=== PATIENT | male | born 1955 | race Caucasian/White ===

== ENCOUNTER 2021-10-15 14:44 | Observation (INO) | payer OTHER, MEDICAID, SELFPAY ==
[2021-10-15] VITALS (15 sets, daily range): BP systolic 162–191; BP diastolic 87–101; PULSE 53–80; RESP 12–20; TEMP 36.8–36.9; O2SAT 97–100; BMI 26.5
--- NOTE | 2021-10-15 14:54 | DI.US.S_ITS ---
PROCEDURE: US PERIPH VENOUS LOW EXTREM RT INDICATIONS: swollen right lower leg TECHNIQUE: Real-time imaging, as well as color and pulse Doppler interrogation, were performed of the lower extremity deep veins from the inguinal ligament to the popliteal fossa. COMPARISON: None. FINDINGS: There is acute fully occlusive thrombus within the right lower extremity involving the proximal , middle, and distal segments of the superficial femoral vein as well as the deep femoral vein and popliteal vein. Infrapopliteal vessels are involved to varying degrees. IMPRESSION: Extensive fully occlusive right lower extremity deep venous thrombosis. Dictated by: Rakesh Marx M.D. on 10/15/2021 at 16:10 Approved by: Rakesh Marx M.D. on 10/15/2021 at 16:11
--- NOTE | 2021-10-15 15:23 | ED_ITS ---
HPI - Extremity Problem General Chief complaint: Extremity Problem,Nontraumatic Stated complaint: R/O blood clot in rt leg, high bp- sent by [facility] Time Seen by Provider: 10/15/21 15:09 Source: patient Mode of arrival: Ambulatory History of Present Illness HPI Narrative: Patient here with family. Sent here from the [facility]. Patient found to have high blood pressure which is unusual for him. Patient also has right calf pain and swelling. No prior history of blood clots in legs or lungs. Patient denies any chest pain but complains of a lot of fatigue and dyspnea in the past couple of weeks. No known injury to the right leg. Blood pressure noted on arrival. Related Data Previous Rx's Medication Instructions Recorded apixaban 5 mg (74 tabs) tablets in See Rx Instructions .ROUTE 10/16/21 a dose pack .COMPLEX #74 ea lisinopril 20 mg tablet 40 mg PO DAILY #60 tab 10/19/21 Allergies Allergy/AdvReac Type Severity Reaction Status Date / Time No Known Drug Allergies Allergy Verified 10/15/21 14:54 Review of Systems Review of Systems Narrative: GENERAL: Denies chills, fatigue, malaise, fever, sweats. HEENT: Denies sinus pain, ear pain, sore throat RESPIRATORY: Positive for dyspnea, negative for cough CARDIOVASCULAR: Denies chest pain, palpitations GASTROINTESTINAL: Denies nausea, vomiting, abdominal pain : Denies dysuria, frequency, hematuria MUSCULOSKELETAL: Positive for muscle or bony pain SKIN: Denies rash, skin lesions NEUROLOGIC: Denies weakness, numbness ROS Unobtainable: All systems reviewed & are unremarkable except as noted in HPI and below Patient History Medical History Chicken pox Genital warts Wears glasses Surgical History Anesthesia History of ankle surgery (~1973) History of ankle surgery (~1972) History of surgery on arm (~1966) Social History household members: spouse Smoking Status: Never smoker Smoking Status: Never smoker alcohol intake frequency: holidays/special occasions only Substance Use Type: marijuana Exam Narrative Exam Narrative: GENERAL: in no distress, not toxic not dyspneic HEAD: Normocephalic. EYES: Pupils equal round No scleral icterus. ENT: Mucous membranes moist. NECK: Trachea midline. CARDIOVASCULAR: Regular rate and rhythm without murmurs RESPIRATORY: Clear to auscultation. Breath sounds equal bilaterally. No wheezes, rales, or rhonchi. GASTROINTESTINAL: Abdomen soft, non-tender EXTREMITIES: No gross deformities. Thighs to feet exposed bilaterally. Feet are warm soft and pink with strong pedal pulse with light touch intact to feet and toes. Right calf is slightly larger than the left. On examination right lower extremity nontender hip knee and ankle. There is tightness to the right calf. Mild tenderness. No palpable cords. No pain out of proportion to exam. Calf is warm soft and pink and dry. BACK: No flank tenderness. NEURO: AOx4. SKIN: Warm and dry PSYCH: Not anxious, is cooperative Initial Vital Signs Initial Vital Signs: Vital Signs Temperature 98.4 F 10/15/21 14:50 Pulse Rate 78 10/15/21 14:50 Respiratory Rate 16 10/15/21 14:50 Blood Pressure 191/101 H 10/15/21 14:50 Pulse Oximetry 100 10/15/21 14:50 Course Course Course Narrative: No new issues during course of stay Decision to Admit Date: 10/15/21 Decision to Admit time: 17:13 Orders Ordered: Discontinued Medications Apixaban (Apixaban 5 Mg Tablet) 10 mg PO NOW ONE Stop: 10/16/21 09:36 Last Admin: 10/16/21 10:34 Dose: 10 mg Documented by: ANGELO Heparin Sodium (Porcine) (Heparin 5,000 Unit/Ml Vial) 6,700 unit 80 unit/kg (6700 unit) IV NOW ONE Stop: 10/15/21 17:08 Last Admin: 10/15/21 17:24 Dose: 6,700 unit Documented by: STACIE Heparin Sodium (Porcine) (Heparin 5,000 Unit/Ml Vial) 5,000 unit IV NOW ONE Stop: 10/16/21 08:01 Last Admin: 10/16/21 08:00 Dose: 5,000 unit Documented by: ANGELO Hydralazine HCl (Hydralazine 20 Mg/Ml Vial) 5 mg IV NOW ONE Stop: 10/15/21 16:11 Last Admin: 10/15/21 16:27 Dose: 5 mg Documented by: STACIE Heparin Sodium/Dextrose (Heparin Drip) 25,000 unit in 500 mls @ 30.209 mls/hr IV CONT SYDNI; Protocol Last Titration: 10/16/21 10:58 Dose: 0 units/kg/hr, 0 mls/hr Documented by: Titration: 10/16/21 08:03 Dose: 24 units/kg/hr, 40.279 mls/hr Documented by: Titration: 10/15/21 17:33 Dose: 18 units/kg/hr, 30.209 mls/hr Documented by: Admin: 10/15/21 17:26 Dose: 18 units/kg/hr, 30.209 mls/hr Documented by: STACIE Lisinopril (Lisinopril 20 Mg Tablet) 20 mg PO DAILY [facility] Last Admin: 10/16/21 08:16 Dose: 20 mg Documented by: Admin: 10/15/21 18:21 Dose: 20 mg Documented by: DAKOTAH Reevaluation(s) Reevaluation #1: No new issues. Reviewed results with patient and family. They understand and agree for admit. Time: 17:13 Consultations Consultation #1: Spoke with hospitalist, dr shah, agrees for admit. Start heparin. Add BNP Time: 17:14 Vital Signs Vital signs: Vital Signs - 8 hr 10/15/21 14:50 10/15/21 14:52 10/15/21 14:53 Temperature 98.4 F Pulse Rate 78 80 64 Respiratory Rate 16 Blood Pressure 191/101 H 165/100 H Pulse Oximetry 100 99 99 10/15/21 15:00 10/15/21 15:30 10/15/21 16:00 Temperature Pulse Rate 57 L 61 53 L Respiratory Rate 12 Blood Pressure 170/98 H Pulse Oximetry 98 98 97 10/15/21 16:01 10/15/21 16:28 10/15/21 16:30 Temperature Pulse Rate 61 57 L 60 Respiratory Rate 12 Blood Pressure 165/91 H 174/89 H 162/89 H Pulse Oximetry 97 100 99 MDM - Extremity (Nontraumatic) Differential Diagnosis Differential diagnosis: Likely deep vein thrombosis of lower extremity and other (Pulmonary embolism/hypertensive urgency) Lab Data Result diagrams: 10/15/21 23:24 10/16/21 05:03 Labs: Lab Results 10/15/21 10/15/21 10/15/21 Range/Units 15:30 15:30 16:30 WBC 8.5 (4.5-11.0) X10^3/uL RBC 4.36 L (4.5-5.9) X10^6/uL Hgb 14.8 (13.5-17.5) g/dL Hct 41.6 (41-53) % MCV 95.5 (80-100) fL MCH 34.1 H (26-34) PG MCHC 35.7 (30-36) % RDW 12.9 (11.6-14.8) % Plt Count 247 (150-400) X10^3/uL Neut % (Auto) 57.4 (50-75) % Lymph % (Auto) 33.0 (25-40) % [place] % (Auto) 7.0 (3-14) % Eos % (Auto) 2.0 (2-4) % Baso % (Auto) 0.6 (0-2) % Neut # (Auto) 4900 (6496-9903) /uL Lymph # (Auto) 2800 (7110-1725) /uL [place] # (Auto) 600 (0-900) /uL Eos # (Auto) 200 (0-450) /uL Baso # (Auto) 100 (0-100) /uL PT (10.1-12.7) SECONDS INR (0.9-1.3) APTT (26.4-36.2) SECONDS D-Dimer (<230) ng/mL Sodium (137-145) mmol/L Potassium (3.4-5.1) mmol/L Chloride (98-107) mmol/L Carbon Dioxide (22-32) mmol/L BUN (9-20) mg/dL Creatinine (0.66-1.25) mg/dL Estimated GFR (>60) mL/min BUN/Creatinine Ratio (6-22) Glucose (80-110) mg/dL Calcium (8.4-10.2) mg/dL Magnesium 2.4 H (1.6-2.3) mg/dL Total Bilirubin (0.2-1.3) mg/dL AST (17-59) IU/L ALT (<50) IU/L Alkaline Phosphatase (38-126) U/L Total Creatine Kinase 133 (55-170) U/L CK-MB (CK-2) 0.58 (<2.37) ng/mL CK-MB (CK-2) Rel Index 0.4 L (1.5-5.0) % Troponin I < 0.012 (0.01-0.034) ng/mL NT-Pro-B Natriuret Pep (<125) pg/mL Total Protein (6.3-8.2) g/dL Albumin (3.5-5.0) g/dL Globulin (1.7-4.1) g/dL Albumin/Globulin Ratio (1.0-2.8) SARS-CoV-2 (PCR) Negative (Negative) 10/15/21 10/15/21 10/15/21 Range/Units 16:36 16:36 16:36 WBC (4.5-11.0) X10^3/uL RBC (4.5-5.9) X10^6/uL Hgb (13.5-17.5) g/dL Hct (41-53) % MCV (80-100) fL MCH (26-34) PG MCHC (30-36) % RDW (11.6-14.8) % Plt Count (150-400) X10^3/uL Neut % (Auto) (50-75) % Lymph % (Auto) (25-40) % [place] % (Auto) (3-14) % Eos % (Auto) (2-4) % Baso % (Auto) (0-2) % Neut # (Auto) (0116-2521) /uL Lymph # (Auto) (8612-3687) /uL [place] # (Auto) (0-900) /uL Eos # (Auto) (0-450) /uL Baso # (Auto) (0-100) /uL PT 13.9 H (10.1-12.7) SECONDS INR 1.2 (0.9-1.3) APTT 30 (26.4-36.2) SECONDS D-Dimer 2041 H (<230) ng/mL Sodium 139 (137-145) mmol/L Potassium 4.1 (3.4-5.1) mmol/L Chloride 104 (98-107) mmol/L Carbon Dioxide 27 (22-32) mmol/L BUN 21 H (9-20) mg/dL Creatinine 0.79 (0.66-1.25) mg/dL Estimated GFR > 60.0 (>60) mL/min BUN/Creatinine Ratio 26.6 H (6-22) Glucose 102 (80-110) mg/dL Calcium 8.9 (8.4-10.2) mg/dL Magnesium (1.6-2.3) mg/dL Total Bilirubin 0.9 (0.2-1.3) mg/dL AST 23 (17-59) IU/L ALT 17 (<50) IU/L Alkaline Phosphatase 102 (38-126) U/L Total Creatine Kinase (55-170) U/L CK-MB (CK-2) (<2.37) ng/mL CK-MB (CK-2) Rel Index (1.5-5.0) % Troponin I (0.01-0.034) ng/mL NT-Pro-B Natriuret Pep 25 (<125) pg/mL Total Protein 6.9 (6.3-8.2) g/dL Albumin 4.1 (3.5-5.0) g/dL Globulin 2.8 (1.7-4.1) g/dL Albumin/Globulin Ratio 1.5 (1.0-2.8) SARS-CoV-2 (PCR) (Negative) ECG Data Interpretation: Sinus bradycardia at rate [address] elevation MDM Narrative Medical decision making narrative: Appropriate for admission. Will need anticoagulation with history DVT and pulmonary embolism findings today. Patient understands. Heparin started in the department. Patient otherwise hemodynamically stable. Blood pressure did improve from arrival time. Discharge Plan Departure Patient Disposition: Admitted As Inpatient Clinical Impression: Deep vein thrombosis of lower extremity Qualifiers: Affected thrombotic vein of extremity: unspecified vein of extremity Chronicity: acute Laterality: right Qualified Code(s): I82.401 - Acute embolism and thrombosis of unspecified deep veins of right lower extremity Pulmonary embolism Qualifiers: Pulmonary embolism type: single subsegmental (without acute cor pulmonale) Qualified Code(s): I26.93 - Single subsegmental pulmonary embolism without acute cor pulmonale Admit Date/Time: 10/15/21 17:20 Admit Provider: Aline Shah
[2021-10-15 15:42] LABS: Add Manual Diff / Slide Review NO; Basophils Absolute Auto 100 /uL (0-100); Basophils Percent Auto 0.6 % (0-2); Eosinophils Absolute Auto 200 /uL (0-450); Hematocrit 41.6 % (41-53); Hemoglobin 14.8 g/dL (13.5-17.5); Lymphocytes Absolute Auto 2800 /uL (1100-4500); Mean Corpuscular HGB Conc 35.7 % (30-36); Mean Corpuscular Hemoglobin 34.1 PG (26-34); Mean Corpuscular Volume 95.5 fL (80-100); Monocytes Absolute Auto 600 /uL (0-900); Neutrophils Absolute Auto 4900 /uL (1500-7000); Neutrophils Percent Auto 57.4 % (50-75); Platelet Count 247 X10^3/uL (150-400); Red Blood Cell Count 4.36 X10^6/uL (4.5-5.9); Red Cell Distribution Width 12.9 % (11.6-14.8); White Blood Cell Count 8.5 X10^3/uL (4.5-11.0)
--- NOTE | 2021-10-15 16:08 | DI.CT.S_ITS ---
PROCEDURE: CT ANGIO CHEST PE PROTOCOL INDICATIONS: Dyspnea TECHNIQUE: Helical axial CT of the chest was obtained after intravenous contrast injection utilizing an angiographic technique and reformatted in multiple planes. Radiation dose reduction was achieved utilizing automated exposure control and/or adjustment of the dose parameters according to patient's size. COMPARISON: None. FINDINGS: Image quality: Excellent. Pulmonary arteries: Filling defects noted in the right lower lobe, middle lobe and upper lobe segmental pulmonary arteries. No filling defect in the right main or left-sided pulmonary arteries. No evidence of right heart strain. Lungs and pleura: Wedge-shaped pleural-based consolidation noted in the right middle lobe peripherally measuring less than 2 cm. Remainder the lungs and both pleural spaces are clear. Mediastinum: Heart size is normal, without pericardial effusion. No mediastinal or hilar adenopathy. Thoracic aorta is normal in caliber and enhancement. Esophagus is normal in caliber, without hiatal hernia. Bones and chest wall: No suspicious bony lesions. Ribs and thoracic spine appear intact throughout. Thyroid gland unremarkable. No axillary or supraclavicular adenopathy. Abdomen: Hepatic cysts are partially imaged measuring up to 3.6 cm IMPRESSION: 1. Right-sided segmental pulmonary emboli without evidence of right heart strain. 2. Small pleural based right middle lobe consolidation could reflect small pulmonary infarct Note: Critical results were discussed with Dr. Rivero at 03:51 PM [place] time on 10/15/21 Approved by: Shun Ghosh M.D. on 10/15/2021 at 15:52
[2021-10-15 16:13] LABS: Creatine Kinase 133 U/L (55-170); Magnesium 2.4 mg/dL (1.6-2.3)
[2021-10-15 16:25] LABS: Troponin I < 0.012 ng/mL (0.01-0.034)
[2021-10-15] MEDS: HYDRALAZINE 20 MG/ML VIAL 5 MG IV (16:27)
[2021-10-15 16:28] LABS: CKMB % Relative Index 0.4 % (1.5-5.0); Creatine Kinase MB 0.58 ng/mL (<2.37)
[2021-10-15 16:52] LABS: INR 1.2 (0.9-1.3); Prothrombin Time 13.9 SECONDS (10.1-12.7)
[2021-10-15 16:55] LABS: Alanine Aminotransferase 17 IU/L (<50); Albumin 4.1 g/dL (3.5-5.0); Albumin Globulin Ratio 1.5 (1.0-2.8); Alkaline Phosphatase 102 U/L (38-126); Aspartate Aminotransferase 23 IU/L (17-59); BUN Creatinine Ratio 26.6 (6-22); Bilirubin Total 0.9 mg/dL (0.2-1.3); Blood Urea Nitrogen 21 mg/dL (9-20); Calcium 8.9 mg/dL (8.4-10.2); Carbon Dioxide 27 mmol/L (22-32); Chloride 104 mmol/L (98-107); Estimated Glomerular Filt Rate > 60.0 mL/min (>60); Globulin 2.8 g/dL (1.7-4.1); Glucose 102 mg/dL (80-110); HEMOLYSIS < 15 (0-50); PTT Partial Thromboplastin Tim 30 SECONDS (26.4-36.2); Potassium 4.1 mmol/L (3.4-5.1); Sodium 139 mmol/L (137-145); Total Protein 6.9 g/dL (6.3-8.2)
[2021-10-15 17:02] LABS: D Dimer 2041 ng/mL (<230)
[2021-10-15 17:06] LABS: COVID19 -Nasal RAPID Negative (Negative)
[2021-10-15] MEDS: HEPARIN 5,000 UNIT/ML VIAL 6700 UNIT IV (17:24)
[2021-10-15] MEDS: HEPARIN DRIP 25,000 UNIT/500 ML IV.SOLN 30.209 UNIT IV (17:26)
[2021-10-15 17:28] LABS: NT-proBNP (BNP-Adult 18+) 25 pg/mL (<125)
--- NOTE | 2021-10-15 17:32 | PC.NURSE ---
IV heparin drip also verified by Jaden RN/ Pt transported up to ICU with Heparin infusing.
--- NOTE | 2021-10-15 18:01 | P.HP_ITS ---
History of Present Illness History of Present Illness Chief complaint: R/O blood clot in rt leg, high bp- sent by [facility] Narrative: 66yo male with no healthcare follow-up that presents with RLE swelling. [place] a local clinic who were concerned about DVT, and so patient was sent to ER. The patient reports this started last night. However, he does endorse right thigh pain that's been there for a few days now. He denies any previous hx of VTE. He denies SOB, CP, palpitations, abd pain, n/v/d, fever/chills, recent URI's. He does endorse having COVID in September 2019, both him and his , and states that they're now both long-haul COVID sufferers. The patient denies any recent trauma to the legs, recent surgeries, recent long- distance travel. However, he does endorse being relatively sedentary over the past 2 years, due to long-haul COVID fatigue and breathlessness. The patient denies ever smoking tobacco. He endorses smoking marijuana when he was younger. Denies illicit drug or EtOH use. PSH is notable for calcium deposits that were removed from arm and ankle at a young age. Otherwise, denies surgical hx. PMH is unremarkable, as pt does not have PCP. Family hx is notable for his mother who was diagnosed with DVT at age 64. He is of [place] ancestry. He denies a hx of hereditary blood disorders that he's aware of. He works as an artist. He lives with his . Patient History Medical History Chicken pox Genital warts Wears glasses Surgical History Anesthesia History of ankle surgery (~1973) History of ankle surgery (~1972) History of surgery on arm (~1966) Family & Social History Safety & Behavioral: Feels Safe in Current Yes Environment Been Physically Hurt or No Threatened By a Person Tobacco & Substance use: Smoking Status Never smoker alcohol intake frequency holiday/special occasion Substance Use Type marijuana Meds Home Medications and Allergies Home Medications Medication Instructions Recorded Confirmed Type No Known Home Medications 04/23/21 05/05/21 History Allergies Allergy/AdvReac Type Severity Reaction Status Date / Time No Known Drug Allergies Allergy Verified 10/15/21 14:54 Review of Systems Constitutional Comments: Denies fever/chills, weight loss, appetite loss Eyes Comments: Denies vision changes Cardiovascular Comments: Denies CP, palpitations Respiratory Comments: Denies SOB, cough, wheezing. Endorses RLE swelling. Gastrointestinal Comments: Denies abd pain, n/v/d Musculoskeletal Comments: Denies muscle aches Integumentary/Breasts Comments: Denies skin changes Exam Vital Signs (past 8 hours): - 10/15/21 14:50 10/15/21 14:52 10/15/21 14:53 Temperature 98.4 F Pulse Rate 78 80 64 Respiratory Rate 16 Blood Pressure 191/101 H 165/100 H Pulse Oximetry 100 99 99 10/15/21 15:00 10/15/21 15:30 10/15/21 16:00 Temperature Pulse Rate 57 L 61 53 L Respiratory Rate 12 Blood Pressure 170/98 H Pulse Oximetry 98 98 97 10/15/21 16:01 10/15/21 16:28 10/15/21 16:30 Temperature Pulse Rate 61 57 L 60 Respiratory Rate 12 Blood Pressure 165/91 H 174/89 H 162/89 H Pulse Oximetry 97 100 99 10/15/21 17:00 Temperature Pulse Rate 68 Respiratory Rate Blood Pressure 180/87 H Pulse Oximetry 99 Oxygen Delivery Method Room Air Const Other: Patient laying in bed comfortably upon my entering the room, laughing with his at bedside and in no apparent acute distress HENMT Other: Slightly emily complexion appreciated to face Eyes Other: No scleral icterus appreciated Resp Other: Lungs clear to auscultation bilaterally Cardio Other: RRR, S1 and S2 heart sounds normal, with no extra heart sounds or murmurs appreciated GI Other: Soft, non-tender, non-distended, bowel sounds present Skin Other: No grossly abnormal skin lesions appreciated Extrem Other: Palpable dorsalis pedis pulses bilaterally Objective Labs Result Diagrams: 10/15/21 15:30 10/15/21 16:36 Labs: Laboratory Results - last 24 hr 10/15/21 10/15/21 10/15/21 15:30 15:30 16:30 WBC 8.5 RBC 4.36 L Hgb 14.8 Hct 41.6 MCV 95.5 MCH 34.1 H MCHC 35.7 RDW 12.9 Plt Count 247 Neut % (Auto) 57.4 Lymph % (Auto) 33.0 [place] % (Auto) 7.0 Eos % (Auto) 2.0 Baso % (Auto) 0.6 Neut # (Auto) 4900 Lymph # (Auto) 2800 [place] # (Auto) 600 Eos # (Auto) 200 Baso # (Auto) 100 PT INR APTT D-Dimer Sodium Potassium Chloride Carbon Dioxide BUN Creatinine Estimated GFR BUN/Creatinine Ratio Glucose Calcium Magnesium 2.4 H Total Bilirubin AST ALT Alkaline Phosphatase Total Creatine Kinase 133 CK-MB (CK-2) 0.58 CK-MB (CK-2) Rel Index 0.4 L Troponin I < 0.012 NT-Pro-B Natriuret Pep Total Protein Albumin Globulin Albumin/Globulin Ratio SARS-CoV-2 (PCR) Negative 10/15/21 10/15/21 10/15/21 16:36 16:36 16:36 WBC RBC Hgb Hct MCV MCH MCHC RDW Plt Count Neut % (Auto) Lymph % (Auto) [place] % (Auto) Eos % (Auto) Baso % (Auto) Neut # (Auto) Lymph # (Auto) [place] # (Auto) Eos # (Auto) Baso # (Auto) PT 13.9 H INR 1.2 APTT 30 D-Dimer 2041 H Sodium 139 Potassium 4.1 Chloride 104 Carbon Dioxide 27 BUN 21 H Creatinine 0.79 Estimated GFR > 60.0 BUN/Creatinine Ratio 26.6 H Glucose 102 Calcium 8.9 Magnesium Total Bilirubin 0.9 AST 23 ALT 17 Alkaline Phosphatase 102 Total Creatine Kinase CK-MB (CK-2) CK-MB (CK-2) Rel Index Troponin I NT-Pro-B Natriuret Pep 25 Total Protein 6.9 Albumin 4.1 Globulin 2.8 Albumin/Globulin Ratio 1.5 SARS-CoV-2 (PCR) Assessment & Plan Assessment & Plan narrative: Assessment: 1. Extensive right lower extremity DVT 2. Right-sided segmental PE 3. Hypertension 4. Possible long-haul COVID-19 Plan: 1. Likely brought on by relatively sedentary lifestyle post-COVID. Extensive DVT, as demonstrated by venous US. IV heparin on-board. Hemodynamically stable for now. Can likely transition to PO anticoagulation in the days ahead. 2. Likely brought on by DVT. The patient might require IVC filter, given extent of this clot. IV heparin on-board. No imaging/troponin/BNP evidence of heart strain. Echocardiogram ordered. 3. Will start lisinopril 20 mg daily for now, can uptitrate if needed. 4. Pt and his contracted COVID in September 2019. He complains of fatigue, general malaise, since that time. VTE prophylaxis: IV heparin, per problems 1, 2. Code: Full code I have utilized all available immediate resources to obtain, update, or review the patient's current medications. Time Spent With Patient Critical Care time: I spent a total of [] minutes of critical care time on this patient's care today; this time is exclusive of procedural time. Quality MIPS - Admit I confirm the patient?s Advance Care Plan is present, Code status is documented, Surrogate decision maker is in patient?s record [If Yes, STOP here]: Yes
[2021-10-15] MEDS: lisinopriL 20 MG TABLET PO (18:21)
[2021-10-15 23:48] LABS: Add Manual Diff / Slide Review NO; Basophils Absolute Auto 0 /uL (0-100); Basophils Percent Auto 0.4 % (0-2); Eosinophils Absolute Auto 200 /uL (0-450); Eosinophils Percent Auto 2.8 % (2-4); Hematocrit 42.8 % (41-53); Hemoglobin 14.9 g/dL (13.5-17.5); Lymphocytes Absolute Auto 2900 /uL (1100-4500); Lymphocytes Percent Auto 36.2 % (25-40); Mean Corpuscular HGB Conc 34.9 % (30-36); Mean Corpuscular Hemoglobin 33.8 PG (26-34); Mean Corpuscular Volume 96.9 fL (80-100); Monocytes Absolute Auto 600 /uL (0-900); Monocytes Percent Auto 8.1 % (3-14); Neutrophils Absolute Auto 4100 /uL (1500-7000); Neutrophils Percent Auto 52.5 % (50-75); Platelet Count 272 X10^3/uL (150-400); Red Blood Cell Count 4.42 X10^6/uL (4.5-5.9); Red Cell Distribution Width 12.8 % (11.6-14.8); White Blood Cell Count 7.9 X10^3/uL (4.5-11.0)
[2021-10-15 23:58] LABS: PTT Partial Thromboplastin Tim 127 SECONDS (26.4-36.2)
[2021-10-16 00:20] VITALS: BP 135/84; PULSE 63; RESP 18; TEMP 36.7; O2SAT 97
--- NOTE | 2021-10-16 01:03 | PC.NURSE ---
PTT came back at 127, stopped heparin drip for 30 min. Resumed heparin drip at 1300 units at 0100. Lab draw at 0600.
[2021-10-16 04:20] VITALS: BP 138/80; PULSE 68; RESP 18; TEMP 36.8; O2SAT 97
[2021-10-16 05:35] LABS: PTT Partial Thromboplastin Tim 34 SECONDS (26.4-36.2)
[2021-10-16 05:42] LABS: Alanine Aminotransferase 17 IU/L (<50); Albumin 4.3 g/dL (3.5-5.0); Albumin Globulin Ratio 1.5 (1.0-2.8); Alkaline Phosphatase 100 U/L (38-126); Aspartate Aminotransferase 24 IU/L (17-59); BUN Creatinine Ratio 21.1 (6-22); Bilirubin Total 1.1 mg/dL (0.2-1.3); Blood Urea Nitrogen 15 mg/dL (9-20); Calcium 9.1 mg/dL (8.4-10.2); Carbon Dioxide 27 mmol/L (22-32); Chloride 105 mmol/L (98-107); Estimated Glomerular Filt Rate > 60.0 mL/min (>60); Globulin 2.8 g/dL (1.7-4.1); Glucose 116 mg/dL (80-110); HEMOLYSIS < 15 (0-50); Magnesium 2.2 mg/dL (1.6-2.3); Sodium 140 mmol/L (137-145); Total Protein 7.1 g/dL (6.3-8.2)
[2021-10-16 07:00] VITALS: O2SAT 96
[2021-10-16 07:30] LABS: PTT Partial Thromboplastin Tim 32 SECONDS (26.4-36.2)
[2021-10-16 08:00] VITALS: BP 155/91; PULSE 69; RESP 17; TEMP 36.6; O2SAT 98
[2021-10-16] MEDS: HEPARIN 5,000 UNIT/ML VIAL 5000 UNIT IV (08:00)
[2021-10-16 08:16] VITALS: BP 162/102; PULSE 69
[2021-10-16] MEDS: lisinopriL 20 MG TABLET PO (08:16)
[2021-10-16] MEDS: APIXABAN 5 MG TABLET 10 MG PO (10:34)
[2021-10-16 11:27] VITALS: O2SAT 96
--- NOTE | 2021-10-16 11:50 | PC.NURSE ---
AM shift Pt is on Heparin gtt, recheck drawn on PTT per pharmacy prior to bolus status. increased per emar. Started PO Xeralto. Education provided. IV removed for DC. Priority boarding pass obtained for 1230pm sailing, Rx sent to [facility] in [place]. Hard copy sent with patient. Follow up appt scheduled Tuesday @ [facility]. Reviewed all dc education with as well as Pt. WC to private vehicle. Appreciative of care.
--- NOTE | 2021-10-16 15:27 | P.DS_ITS ---
History of Present Illness History of Present Illness Chief complaint: R/O blood clot in rt leg, high bp- sent by [facility] Narrative: 66yo male with no healthcare follow-up that presents with RLE swelling. [place] He presented [place] a local clinic who were concerned about DVT, and so patient was sent to ER. The patient reports this started last night. However, he does endorse right thigh pain that's been there for a few days now. He denies any previous hx of VTE. He denies SOB, CP, palpitations, abd pain, n/v/d, fever/chills, recent URI's. He does endorse having COVID in September 2019, both him and his , and states that they're now both long-haul COVID sufferers. The patient denies any recent trauma to the legs, recent surgeries, recent long- distance travel. However, he does endorse being relatively sedentary over the past 2 years, due to long-haul COVID fatigue and breathlessness. The patient denies ever smoking tobacco. He endorses smoking marijuana when he was younger. Denies illicit drug or EtOH use. PSH is notable for calcium deposits that were removed from arm and ankle at a young age. Otherwise, denies surgical hx. PMH is unremarkable, as pt does not have PCP. Family hx is notable for his mother who was diagnosed with DVT at age 64. He is of [place] ancestry. He denies a hx of hereditary blood disorders that he's aware of. He works as an artist. He lives with his . Discharge Providers Provider Date of admission: 10/15/21 17:20 Discharge Date: 10/16/21 Primary care physician: Tae Londono MD Discharge provider: Jonathon Juarez MD Summary Hospital Course Discharge Diagnosis: 1. Right leg occlusive DVT 2. Right lung segmental PE 3. Hypertension Vascular ultrasound:Extensive fully occlusive right lower extremity deep venous thrombosis. Chest CTA:1. Right-sided segmental pulmonary emboli without evidence of right heart strain. ? 2. Small pleural based right middle lobe consolidation could reflect small pulmonary infarct Hospital Course: Patient was started on IV heparin for right leg extensive DVT and right lung segmental PE. He had no respiratory symptoms and oxygen saturations were stable overnight. He is being discharged on Eliquis. This appears to be an unprovoked thromboembolism although patient does endorse sedentary lifestyle. Consider repeat right leg ultrasound in 3 months. Instructed to wear compression stockings. He should get up-to-date on any cancer screening. He was also noted to have persistent significant elevated blood pressures for which he is started on lisinopril and will follow-up with PCP. Status at Discharge Cognitive/behavioral status at discharge: oriented Functional status at discharge: independent ambulation Overall status at discharge: patient is progressing back to baseline Exam Vital Signs (past 8 hours): - 10/16/21 08:00 10/16/21 08:16 10/16/21 11:27 Temperature 98 F Pulse Rate 69 69 Respiratory Rate 17 Blood Pressure 155/91 H 162/102 H Pulse Oximetry 98 96 Oxygen Delivery Method Room Air Oxygen Flow Rate 0 Narrative Exam Narrative: General: Alert and comfortable appearing Lungs: Clear and breathing nonlabored Heart: Regular rhythm Extremities: No pitting edema Objective Labs Result Diagrams: 10/15/21 23:24 10/16/21 05:03 Labs: Laboratory Results - last 24 hr 10/15/21 10/15/21 10/15/21 15:30 15:30 16:30 WBC 8.5 RBC 4.36 L Hgb 14.8 Hct 41.6 MCV 95.5 MCH 34.1 H MCHC 35.7 RDW 12.9 Plt Count 247 Neut % (Auto) 57.4 Lymph % (Auto) 33.0 Carver % (Auto) 7.0 Eos % (Auto) 2.0 Baso % (Auto) 0.6 Neut # (Auto) 4900 Lymph # (Auto) 2800 Carver # (Auto) 600 Eos # (Auto) 200 Baso # (Auto) 100 PT INR APTT D-Dimer Sodium Potassium Chloride Carbon Dioxide BUN Creatinine Estimated GFR BUN/Creatinine Ratio Glucose Calcium Magnesium 2.4 H Total Bilirubin AST ALT Alkaline Phosphatase Total Creatine Kinase 133 CK-MB (CK-2) 0.58 CK-MB (CK-2) Rel Index 0.4 L Troponin I < 0.012 NT-Pro-B Natriuret Pep Total Protein Albumin Globulin Albumin/Globulin Ratio SARS-CoV-2 (PCR) Negative 10/15/21 10/15/21 10/15/21 16:36 16:36 16:36 WBC RBC Hgb Hct MCV MCH MCHC RDW Plt Count Neut % (Auto) Lymph % (Auto) Carver % (Auto) Eos % (Auto) Baso % (Auto) Neut # (Auto) Lymph # (Auto) Carver # (Auto) Eos # (Auto) Baso # (Auto) PT 13.9 H INR 1.2 APTT 30 D-Dimer 2041 H Sodium 139 Potassium 4.1 Chloride 104 Carbon Dioxide 27 BUN 21 H Creatinine 0.79 Estimated GFR > 60.0 BUN/Creatinine Ratio 26.6 H Glucose 102 Calcium 8.9 Magnesium Total Bilirubin 0.9 AST 23 ALT 17 Alkaline Phosphatase 102 Total Creatine Kinase CK-MB (CK-2) CK-MB (CK-2) Rel Index Troponin I NT-Pro-B Natriuret Pep 25 Total Protein 6.9 Albumin 4.1 Globulin 2.8 Albumin/Globulin Ratio 1.5 SARS-CoV-2 (PCR) 10/15/21 10/15/21 10/16/21 23:24 23:24 05:03 WBC 7.9 RBC 4.42 L Hgb 14.9 Hct 42.8 MCV 96.9 MCH 33.8 MCHC 34.9 RDW 12.8 Plt Count 272 Neut % (Auto) 52.5 Lymph % (Auto) 36.2 Carver % (Auto) 8.1 Eos % (Auto) 2.8 Baso % (Auto) 0.4 Neut # (Auto) 4100 Lymph # (Auto) 2900 Carver # (Auto) 600 Eos # (Auto) 200 Baso # (Auto) 0 PT INR APTT 127 H* D D-Dimer Sodium 140 Potassium 4.0 Chloride 105 Carbon Dioxide 27 BUN 15 Creatinine 0.71 Estimated GFR > 60.0 BUN/Creatinine Ratio 21.1 Glucose 116 H Calcium 9.1 Magnesium 2.2 Total Bilirubin 1.1 AST 24 ALT 17 Alkaline Phosphatase 100 Total Creatine Kinase CK-MB (CK-2) CK-MB (CK-2) Rel Index Troponin I NT-Pro-B Natriuret Pep Total Protein 7.1 Albumin 4.3 Globulin 2.8 Albumin/Globulin Ratio 1.5 SARS-CoV-2 (PCR) 10/16/21 10/16/21 05:03 07:06 WBC RBC Hgb Hct MCV MCH MCHC RDW Plt Count Neut % (Auto) Lymph % (Auto) Carver % (Auto) Eos % (Auto) Baso % (Auto) Neut # (Auto) Lymph # (Auto) Carver # (Auto) Eos # (Auto) Baso # (Auto) PT INR APTT 34 D 32 D-Dimer Sodium Potassium Chloride Carbon Dioxide BUN Creatinine Estimated GFR BUN/Creatinine Ratio Glucose Calcium Magnesium Total Bilirubin AST ALT Alkaline Phosphatase Total Creatine Kinase CK-MB (CK-2) CK-MB (CK-2) Rel Index Troponin I NT-Pro-B Natriuret Pep Total Protein Albumin Globulin Albumin/Globulin Ratio SARS-CoV-2 (PCR) [facility] Medical History Chicken pox Genital warts Wears glasses Surgical History Anesthesia History of ankle surgery (~1973) History of ankle surgery (~1972) History of surgery on arm (~1966) Social History household members: spouse Smoking Status: Never smoker Discharge Plan Discharge Plan Patient Disposition: Home Provider Discharge Comment: You were evaluated for unprovoked right leg deep vein thrombosis (DVT) and small right lung pulmonary embolism. You are being discharged on Eliquis (apixaban) for anticoagulant medication. Take Eliquis for at least 3 months and preferably 6 months. Avoid aspirin or NSAID pain relievers while on this blood thinner. Tylenol is okay. Consider right leg venous ultrasound in 3 months to reassess DVT. Wear thigh high medium compression stockings during awake time to decrease jennyfer of chronic venous insufficiency. You were also started on lisinopril for blood pressure lowering. Monitor BP at home. Work and diet and increase activity to lose weight. Have cholesterol and thyroid checked with PCP. Rarely a DVT can precede diagnosis of unknown malignancy. You should discuss with PCP getting any necessary cancer screening such as PSA and colonoscopy (after 6 months). Discharge orders & Medications Prescriptions: New lisinopril 20 mg Tablet 20 mg PO DAILY Qty: 30 0RF apixaban 5 mg (74 tabs) tablets,dose pack See Rx Instructions .ROUTE .COMPLEX Qty: 74 0RF Rx Instructions: take 2 tabs (10 mg) every 12 hours for one week, then 1 tab (5 mg) every 12 hours for maintenance Follow up/Referrals: Tae Londono MD [Primary Care Provider] - Diet/Activity/Treatments Diet: Low-sodium Visit Report/Discharge Packet Instructions: DI for Deep Vein Thrombosis, DI for Pulmonary Embolism Discharge Data Primary Care Provider: Tae Londono Attending Provider: Aline Shah
--- NOTE | 2021-10-16 15:59 | CM.IDA ---
Initial DCP Assessment Note Pt is a 66 yo male, resident of [facility], arrives R/O blood clot in rt leg, high bp- sent by [place] PCP: Tae Londono Payer: [employer] Reviewed chart, pt discussed in multidisciplinary rounds this morning. Patient discharging today, new Rx Eliquis and lisinopril , close outpatient f/u recommended. Patient indp and active at baseline; has been suffering from long haulers COVID otherwise denies needs from this [employer] No needs expected from DC planning team although will remain available in case this changes today. FAMILIA Lopez
== END 2021-10-16 11:53 | disposition home or self-care (01) ==
LOC: ED 17:14 → AC 10-16 07:59
PROVIDERS: Admitting Provider Student in an Organized Health Care Education/Training Program; Emergency Provider Emergency Medicine; PCP Family Medicine; Referring Provider Emergency Medicine; Visit Provider Student in an Organized Health Care Education/Training Program
DX: I82.432 Acute embolism and thrombosis of left popliteal vein (principal); I82.412 Acute embolism and thrombosis of left femoral vein; I26.99 Other pulmonary embolism without acute cor pulmonale; I10 Essential (primary) hypertension; U09.9 Post COVID-19 condition, unspecified; Z20.822 Contact with and (suspected) exposure to COVID-19
CPT/HCPCS: 36415; 71275; 80053; 82550; 82553; 83735; 83880; 84484; 85025; 85379; 85610; 85730; 87635; 93005; 93971; 94760; 96365; 96366; 96375; 96376; 99285; C9803; G0378; J0360; J1644; Q9967

== ENCOUNTER 2021-10-28 18:35 | Emergency (ER) | payer OTHER, MEDICAID, SELFPAY ==
[2021-10-15 18:23] VITALS: BMI 26.5
[2021-10-28 18:40] VITALS: BP 134/81; PULSE 83; RESP 18; TEMP 36.6; O2SAT 100
--- NOTE | 2021-10-28 18:48 | DI.CT.S_ITS ---
PROCEDURE: CT ANGIO CHEST PE PROTOCOL INDICATIONS: Chest pain, shortness of breath, tachycardia TECHNIQUE: After the administration of intravenous contrast, 2 mm thick sections acquired from the pulmonary apices to the posterior costophrenic angles. 3-dimensional maximum intensity projection (MIP) coronal and sagittal reformats were then acquired through the thorax. For radiation dose reduction, the following was used: automated exposure control, adjustment of mA and/or kV according to patient size. COMPARISON: [facility], CT, CT ANGIO CHEST PE PROTOCOL, 10/15/2021, 16:20. FINDINGS: Image quality: Excellent. Pulmonary arteries: Pulmonary arteries are normal in size, and demonstrate no new or progressing intraluminal filling defects. Previously seen right sided pulmonary emboli have mostly resolved. Minimal residual eccentric filling defect noted in the proximal segmental pulmonary artery of the right lower lobe. Lungs and pleura: Previously described pleural-based wedge-shaped consolidation within the right middle lobe is persistent but smaller in size and conspicuity. No new focal airspace disease. No pleural effusions or pneumothorax. Central and peripheral airways are patent. Mediastinum: Heart size is normal, without pericardial effusion. No evidence for acute right-sided heart strain. No mediastinal or hilar adenopathy. Thoracic aorta is normal in caliber and enhancement. Esophagus is normal in caliber, without hiatal hernia. Bones and chest wall: No suspicious bony lesions. Ribs and thoracic spine appear intact throughout. Thyroid gland is unremarkable. No axillary or supraclavicular adenopathy. Abdomen: Redemonstration of multiple hepatic cysts. Remaining visualized upper abdominal solid organs appear normal in the early arterial phase of enhancement. IMPRESSION: 1. Near complete resolution of previously seen right upper, middle, and lower lobe pulmonary emboli with minimal residual eccentric filling defect in the proximal segmental right lower lobe pulmonary artery. No new or progressing pulmonary emboli. No evidence for acute right-sided heart strain. 2. Persistent but decreased size and conspicuity of peripheral, pleural-based right middle lobe opacity. 3. Otherwise, no acute cardiopulmonary abnormalities. 4. Redemonstration of multiple hepatic cysts. Dictated by: Joel Rosado M.D. on 10/28/2021 at 19:59 Approved by: Joel Rosado M.D. on 10/28/2021 at 20:08
--- NOTE | 2021-10-28 18:54 | ED.CHESTPAIN ---
HPI - Chest Pain General Chief Complaint: Chest Pain Stated Complaint: Suspected pulmonary embolism Time Seen by Provider: 10/28/21 18:43 Source: patient Mode of arrival: Ambulatory Limitations: no limitations History of Present Illness HPI narrative: Patient is a 66-year-old male. Was recently diagnosed with a right lower extremity DVT and pulmonary embolism. Was subsequently admitted to this facility for period of time. Discharged home on apixaban. He has been taking this has directed. He states that the swelling in his right leg is actually improved. There was not a specific reason as to why he developed a blood clot in his right leg. He has never had a blood clot in the past. He is here today because he states that he started to have some discomfort to the left side of his chest with some shortness of breath. He was concerned that he potentially has a new pulmonary embolism. No fevers. No cough. Related Data Previous Rx's Medication Instructions Recorded apixaban 5 mg (74 tabs) tablets in See Rx Instructions .ROUTE 10/16/21 a dose pack .COMPLEX #74 ea lisinopril 20 mg tablet 40 mg PO DAILY #60 tab 10/19/21 Allergies Allergy/AdvReac Type Severity Reaction Status Date / Time No Known Drug Allergies Allergy Verified 10/15/21 14:54 Review of Systems Cardiovascular Cardiovascular: Reports as per HPI and Reports system reviewed and no additional complaints, except as documented Respiratory Respiratory: Reports as per HPI and Reports system reviewed and no additional complaints, except as documented Gastrointestinal Gastrointestinal: Reports as per HPI and Reports system reviewed and no additional complaints, except as documented Musculoskeletal Musculoskeletal: Reports system reviewed and no additional complaints, except as documented and Reports as per HPI Integumentary/Breasts Skin/Breast: Reports system reviewed and no additional complaints, except as documented Neurologic Neurologic: Reports system reviewed and no additional complaints, except as documented Hematologic/Lymphatic On Anticoagulants: Yes Patient History Medical History Chicken pox Genital warts Wears glasses Surgical History Anesthesia History of ankle surgery (~1973) History of ankle surgery (~1972) History of surgery on arm (~1966) Social History household members: spouse Smoking Status: Never smoker Smoking Status: Never smoker alcohol intake frequency: holidays/special occasions only Substance Use Type: marijuana Exam Initial Vital Signs Initial Vital Signs: Vital Signs Temperature 97.8 F 10/28/21 18:40 Pulse Rate 83 10/28/21 18:40 Respiratory Rate 18 10/28/21 18:40 Blood Pressure 134/81 10/28/21 18:40 Pulse Oximetry 100 10/28/21 18:40 HENMT Head: normal to inspection and normocephalic Resp Effort & Inspection: normal respiratory effort Auscultation: clear to auscultation bilaterally Cardio Rate: regular rate Rhythm: regular rhythm Skin General: no rashes or lesions noted Neuro General: patient alert, patient awake and patient oriented x3 Extrem Other: Wound swelling in the right lower extremity without edema. Psych Appearance: grossly normal and well kempt Course Orders Ordered: ED Orders 10/28/21 18:48 CT angio chest PE protocol Stat EKG-12 Lead Stat 10/28/21 18:55 Complete Blood Count AUTO DIFF Stat Comprehensive Metabolic Panel Stat Lipase Stat NT-proBNP (BNP-Adult 18+) Stat Partial Thromboplastin Time Stat Prothrombin Time INR Stat Troponin & CK Cardiac Panel Stat Discontinued Medications Sodium Chloride (Normal Saline 0.9%) 1,000 mls @ 125 mls/hr IV CONT SYDNI Last Infusion: 10/28/21 20:46 Dose: 0 mls/hr Documented by: Admin: 10/28/21 19:40 Dose: 125 mls/hr Documented by: SWAPNIL Vital Signs Vital signs: Vital Signs - 8 hr 10/28/21 19:51 10/28/21 19:54 10/28/21 20:00 Pulse Rate 64 63 62 Respiratory Rate 13 15 12 Blood Pressure 147/93 H 150/88 H Pulse Oximetry 99 100 98 10/28/21 20:30 Pulse Rate 58 L Respiratory Rate 12 Blood Pressure 137/88 Pulse Oximetry 100 MDM - Chest Pain Medical Records Data Attestation: I reviewed the patient's medical records. Lab Data Attestation: I reviewed the patient's lab results. Result diagrams: 10/28/21 18:55 10/28/21 18:55 Labs: Lab Results 10/28/21 10/28/21 10/28/21 Range/Units 18:55 18:55 18:55 WBC 9.7 (4.5-11.0) X10^3/uL RBC 4.72 (4.5-5.9) X10^6/uL Hgb 15.8 (13.5-17.5) g/dL Hct 45.8 (41-53) % MCV 97.1 (80-100) fL MCH 33.6 (26-34) PG MCHC 34.6 (30-36) % RDW 13.5 (11.6-14.8) % Plt Count 240 (150-400) X10^3/uL Neut % (Auto) 48.2 L (50-75) % Lymph % (Auto) 40.4 H (25-40) % Davis % (Auto) 8.4 (3-14) % Eos % (Auto) 2.4 (2-4) % Baso % (Auto) 0.6 (0-2) % Neut # (Auto) 4700 (2379-2529) /uL Lymph # (Auto) 3900 (6261-7255) /uL Davis # (Auto) 800 (0-900) /uL Eos # (Auto) 200 (0-450) /uL Baso # (Auto) 100 (0-100) /uL PT 12.4 (10.1-12.7) SECONDS INR 1.1 (0.9-1.3) APTT 34 (26.4-36.2) SECONDS Sodium 141 (137-145) mmol/L Potassium 3.8 (3.4-5.1) mmol/L Chloride 104 (98-107) mmol/L Carbon Dioxide 23 (22-32) mmol/L BUN 21 H (9-20) mg/dL Creatinine 0.85 (0.66-1.25) mg/dL Estimated GFR > 60 (>60) mL/min BUN/Creatinine Ratio 24.7 H (6-22) Glucose 104 (80-110) mg/dL Calcium 9.4 (8.4-10.2) mg/dL Total Bilirubin 1.0 (0.2-1.3) mg/dL AST 34 (17-59) IU/L ALT 22 (<50) IU/L Alkaline Phosphatase 81 (38-126) U/L Total Creatine Kinase (55-170) U/L CK-MB (CK-2) (<2.37) ng/mL CK-MB (CK-2) Rel Index (1.5-5.0) % Troponin I (0.01-0.034) ng/mL NT-Pro-B Natriuret Pep (<125) pg/mL Total Protein 8.1 (6.3-8.2) g/dL Albumin 4.9 (3.5-5.0) g/dL Globulin 3.2 (1.7-4.1) g/dL Albumin/Globulin Ratio 1.5 (1.0-2.8) Lipase (23-300) U/L 10/28/21 10/28/21 Range/Units 18:55 18:55 WBC (4.5-11.0) X10^3/uL RBC (4.5-5.9) X10^6/uL Hgb (13.5-17.5) g/dL Hct (41-53) % MCV (80-100) fL MCH (26-34) PG MCHC (30-36) % RDW (11.6-14.8) % Plt Count (150-400) X10^3/uL Neut % (Auto) (50-75) % Lymph % (Auto) (25-40) % Davis % (Auto) (3-14) % Eos % (Auto) (2-4) % Baso % (Auto) (0-2) % Neut # (Auto) (4907-1602) /uL Lymph # (Auto) (2173-5219) /uL Davis # (Auto) (0-900) /uL Eos # (Auto) (0-450) /uL Baso # (Auto) (0-100) /uL PT (10.1-12.7) SECONDS INR (0.9-1.3) APTT (26.4-36.2) SECONDS Sodium (137-145) mmol/L Potassium (3.4-5.1) mmol/L Chloride (98-107) mmol/L Carbon Dioxide (22-32) mmol/L BUN (9-20) mg/dL Creatinine (0.66-1.25) mg/dL Estimated GFR (>60) mL/min BUN/Creatinine Ratio (6-22) Glucose (80-110) mg/dL Calcium (8.4-10.2) mg/dL Total Bilirubin (0.2-1.3) mg/dL AST (17-59) IU/L ALT (<50) IU/L Alkaline Phosphatase (38-126) U/L Total Creatine Kinase 102 (55-170) U/L CK-MB (CK-2) 1.03 (<2.37) ng/mL CK-MB (CK-2) Rel Index 1.0 L (1.5-5.0) % Troponin I < 0.012 (0.01-0.034) ng/mL NT-Pro-B Natriuret Pep 25 (<125) pg/mL Total Protein (6.3-8.2) g/dL Albumin (3.5-5.0) g/dL Globulin (1.7-4.1) g/dL Albumin/Globulin Ratio (1.0-2.8) Lipase 74 (23-300) U/L Imaging Data CT scan - chest: Radiologist's Impression: [address] [address] [address] Scan Report Signed Patient: Cristo Mar MR#: [id number] : 1955 Acct:[id number] Age/Sex: 66 / M Date of Service: 10/28/21 Loc: ED Accession Number: [id number] ?? Procedure: CT angio chest PE protocol Ordering Provider: Moises Bojorquez D.O. PROCEDURE:? CT ANGIO CHEST PE PROTOCOL ? INDICATIONS:? Chest pain, shortness of breath, tachycardia ? TECHNIQUE:? After the administration of intravenous contrast, 2 mm thick sections acquired from the pulmonary apices to the posterior costophrenic angles.? 3-dimensional maximum intensity projection (MIP) coronal and sagittal reformats were then acquired through the thorax.? For radiation dose reduction, the following was used:? automated exposure control, adjustment of mA and/or kV according to patient size.? ? COMPARISON:? [facility], [place], [place] ANGIO CHEST PE PROTOCOL, 10/15/2021, 16:20. ? FINDINGS:? Image quality:? Excellent.? ? Pulmonary arteries:? Pulmonary arteries are normal in size, and demonstrate no new or progressing intraluminal filling defects.? Previously seen right sided pulmonary emboli have mostly resolved.? Minimal residual eccentric filling defect noted in the proximal segmental pulmonary artery of the right lower lobe. ? Lungs and pleura:? Previously described pleural-based wedge-shaped consolidation within the right middle lobe is persistent but smaller in size and conspicuity.? No new focal airspace disease.? No pleural effusions or pneumothorax.? Central and peripheral airways are patent.? ? Mediastinum:? Heart size is normal, without pericardial effusion.? No evidence for acute right-sided heart strain.? No mediastinal or hilar adenopathy.? Thoracic aorta is normal in caliber and enhancement.? Esophagus is normal in caliber, without hiatal hernia.? ? Bones and chest wall:? No suspicious bony lesions.? Ribs and thoracic spine appear intact throughout.? Thyroid gland is unremarkable.? No axillary or supraclavicular adenopathy.? ? Abdomen:? Redemonstration of multiple hepatic cysts.? Remaining visualized upper abdominal solid organs appear normal in the early arterial phase of enhancement.? ? IMPRESSION:? ? 1. Near complete resolution of previously seen right upper, middle, and lower lobe pulmonary emboli with minimal residual eccentric filling defect in the proximal segmental right lower lobe pulmonary artery.? No new or progressing pulmonary emboli.? No evidence for acute right-sided heart strain. ? 2. Persistent but decreased size and conspicuity of peripheral, pleural-based right middle lobe opacity. ? 3. Otherwise, no acute cardiopulmonary abnormalities. ? 4.? Redemonstration of multiple hepatic cysts. ? ? Dictated by: Joel Rosado M.D. on 10/28/2021 at 19:59 ? ? Approved by: Joel Rosado M.D. on 10/28/2021 at 20:08?? ECG Data Attestation: I personally reviewed and interpreted this ECG as follows: Interpretation: Sinus rhythm Ventricular rate is 60 Fifty Six Normal QRS normal QTC No ST T wave changes MDM Narrative Medical decision making narrative: Patient's EKG is unremarkable. Troponin negative. BNP negative. CT scan of the chest shows no new signs of a pulmonary embolus and shows some resolution of the prior clots noted on prior CT scan. He does have some mild swelling of his right lower extremity but he reports this is improved from prior. Low suspicion for ACS. I did discuss this with the patient. He is reassured that he has no new blood clots in his lungs. Will hold on further workup for now. He was given return precautions and follow-up instructions. He expressed understanding and agreement. Discharge Plan Departure Patient Disposition: Home Clinical Impression: Chest pain Instructions: DI for Chest Pain Activity Restrictions/Additional Instructions: The CT scan today does not show any new pulmonary embolisms and does show improvement of the prior blood clots. I recommend that you continue to take all of your medications as directed. Return to the emergency department for any new or worsening symptoms. Prescriptions: No Action apixaban 5 mg (74 tabs) tablets,dose pack See Rx Instructions .ROUTE .COMPLEX Qty: 74 0RF Rx Instructions: take 2 tabs (10 mg) every 12 hours for one week, then 1 tab (5 mg) every 12 hours for maintenance lisinopril 20 mg tablet 40 mg PO DAILY Qty: 60 2RF Referrals: Tae Londono MD [Primary Care Provider] -
[2021-10-28 19:20] LABS: INR 1.1 (0.9-1.3); Prothrombin Time 12.4 SECONDS (10.1-12.7)
[2021-10-28 19:23] LABS: PTT Partial Thromboplastin Tim 34 SECONDS (26.4-36.2)
[2021-10-28 19:27] LABS: Alanine Aminotransferase 22 IU/L (<50); Albumin 4.9 g/dL (3.5-5.0); Albumin Globulin Ratio 1.5 (1.0-2.8); Alkaline Phosphatase 81 U/L (38-126); Aspartate Aminotransferase 34 IU/L (17-59); BUN Creatinine Ratio 24.7 (6-22); Blood Urea Nitrogen 21 mg/dL (9-20); Calcium 9.4 mg/dL (8.4-10.2); Carbon Dioxide 23 mmol/L (22-32); Chloride 104 mmol/L (98-107); Estimated Glomerular Filt Rate > 60 mL/min (>60); Globulin 3.2 g/dL (1.7-4.1); Glucose 104 mg/dL (80-110); Potassium 3.8 mmol/L (3.4-5.1); Sodium 141 mmol/L (137-145); Total Protein 8.1 g/dL (6.3-8.2)
[2021-10-28 19:28] LABS: Add Manual Diff / Slide Review NO; Basophils Absolute Auto 100 /uL (0-100); Basophils Percent Auto 0.6 % (0-2); Eosinophils Absolute Auto 200 /uL (0-450); Eosinophils Percent Auto 2.4 % (2-4); Hematocrit 45.8 % (41-53); Hemoglobin 15.8 g/dL (13.5-17.5); Lymphocytes Absolute Auto 3900 /uL (1100-4500); Lymphocytes Percent Auto 40.4 % (25-40); Mean Corpuscular HGB Conc 34.6 % (30-36); Mean Corpuscular Hemoglobin 33.6 PG (26-34); Mean Corpuscular Volume 97.1 fL (80-100); Monocytes Absolute Auto 800 /uL (0-900); Monocytes Percent Auto 8.4 % (3-14); Neutrophils Absolute Auto 4700 /uL (1500-7000); Neutrophils Percent Auto 48.2 % (50-75); Platelet Count 240 X10^3/uL (150-400); Red Blood Cell Count 4.72 X10^6/uL (4.5-5.9); Red Cell Distribution Width 13.5 % (11.6-14.8); White Blood Cell Count 9.7 X10^3/uL (4.5-11.0)
[2021-10-28 19:30] LABS: HEMOLYSIS 69 (0-50)
[2021-10-28 19:32] LABS: Creatine Kinase 102 U/L (55-170); Lipase 74 U/L (23-300)
[2021-10-28 19:36] LABS: NT-proBNP (BNP-Adult 18+) 25 pg/mL (<125)
[2021-10-28] MEDS: SODIUM CHLORIDE 0.9% 1,000 ML 125 ML IV (19:40)
[2021-10-28 19:44] LABS: Troponin I < 0.012 ng/mL (0.01-0.034)
[2021-10-28 19:48] LABS: Creatine Kinase MB 1.03 ng/mL (<2.37)
[2021-10-28 19:51] VITALS: PULSE 64; RESP 13; O2SAT 99
[2021-10-28 19:54] VITALS: BP 147/93; PULSE 63; RESP 15; O2SAT 100
[2021-10-28 20:00] VITALS: BP 150/88; PULSE 62; RESP 12; O2SAT 98
[2021-10-28 20:30] VITALS: BP 137/88; PULSE 58; RESP 12; O2SAT 100
== END 2021-10-28 20:53 | disposition home or self-care (01) ==
PROVIDERS: Emergency Provider Emergency Medicine; PCP Family Medicine
DX: R07.9 Chest pain, unspecified (principal)
CPT/HCPCS: 36415; 71275; 80053; 82550; 82553; 83690; 83880; 84484; 85025; 85610; 85730; 93005; 93010; 99284; Q9967

== ENCOUNTER → 2021-10-29 09:41 | Outpatient (CLI) | payer OTHER, MEDICAID, SELFPAY ==
[2021-10-15 18:23] VITALS: BMI 26.5
[2021-10-29 19:31] LABS: Add Manual Diff / Slide Review NO; Basophils Absolute Auto 0 /uL (0-100); Basophils Percent Auto 0.5 % (0-2); Eosinophils Absolute Auto 100 /uL (0-450); Eosinophils Percent Auto 2.2 % (2-4); Hematocrit 44.6 % (41-53); Hemoglobin 15.2 g/dL (13.5-17.5); Lymphocytes Absolute Auto 2700 /uL (1100-4500); Lymphocytes Percent Auto 43.6 % (25-40); Mean Corpuscular HGB Conc 33.9 % (30-36); Mean Corpuscular Volume 97.3 fL (80-100); Monocytes Absolute Auto 500 /uL (0-900); Monocytes Percent Auto 7.5 % (3-14); Neutrophils Absolute Auto 2800 /uL (1500-7000); Neutrophils Percent Auto 46.2 % (50-75); Platelet Count 225 X10^3/uL (150-400); Red Blood Cell Count 4.59 X10^6/uL (4.5-5.9); Red Cell Distribution Width 13.1 % (11.6-14.8); White Blood Cell Count 6.1 X10^3/uL (4.5-11.0)
[2021-10-29 19:42] LABS: Cholesterol 205 mg/dL (140-199); HDL Cholesterol 47 mg/dL (40-60); LDL Cholesterol Calculated 135 mg/dL (<100); Triglycerides 115 mg/dL (35-150)
[2021-10-29 20:12] LABS: TSH w/ Reflex to FT4 3.77 uIU/mL (0.47-4.68)
[2021-10-29 20:13] LABS: Prostate Specific Antigen Scrn 1.75 ng/mL (0.1-4.0)
== END ==
PROVIDERS: PCP Family Medicine; Visit Provider Family Medicine
DX: I10 Essential (primary) hypertension (principal); I26.99 Other pulmonary embolism without acute cor pulmonale; Z12.5 Encounter for screening for malignant neoplasm of prostate
CPT/HCPCS: 80061; 84443; 85025; G0103

== ENCOUNTER → 2021-12-28 08:33 | Outpatient (CLI) | payer OTHER, MEDICAID, SELFPAY ==
[2021-11-12 12:54] VITALS: BMI 26.5
[2021-12-28 20:04] LABS: D Dimer < 200 ng/mL (<230)
[2021-12-28 20:18] LABS: Add Manual Diff / Slide Review NO; Basophils Absolute Auto 0 /uL (0-100); Basophils Percent Auto 0.3 % (0-2); Eosinophils Absolute Auto 200 /uL (0-450); Eosinophils Percent Auto 2.7 % (2-4); Hemoglobin 15.3 g/dL (13.5-17.5); Lymphocytes Absolute Auto 2600 /uL (1100-4500); Mean Corpuscular HGB Conc 34.8 % (30-36); Mean Corpuscular Volume 97.7 fL (80-100); Monocytes Absolute Auto 400 /uL (0-900); Monocytes Percent Auto 7.9 % (3-14); Neutrophils Absolute Auto 2300 /uL (1500-7000); Neutrophils Percent Auto 42.1 % (50-75); Platelet Count 191 X10^3/uL (150-400); Red Blood Cell Count 4.51 X10^6/uL (4.5-5.9); Red Cell Distribution Width 14.3 % (11.6-14.8); White Blood Cell Count 5.5 X10^3/uL (4.5-11.0)
[2021-12-28 20:28] LABS: Alanine Aminotransferase 19 IU/L (<50); Albumin 4.8 g/dL (3.5-5.0); Alkaline Phosphatase 64 U/L (38-126); Aspartate Aminotransferase 23 IU/L (17-59); BUN Creatinine Ratio 16.7 (6-22); Bilirubin Total 1.2 mg/dL (0.2-1.3); Blood Urea Nitrogen 15 mg/dL (9-20); Calcium 9.8 mg/dL (8.4-10.2); Carbon Dioxide 26 mmol/L (22-32); Chloride 103 mmol/L (98-107); Estimated Glomerular Filt Rate > 60 mL/min (>60); Globulin 2.4 g/dL (1.7-4.1); Glucose 104 mg/dL (80-110); HEMOLYSIS < 15 (0-50); Sodium 139 mmol/L (137-145); Total Protein 7.2 g/dL (6.3-8.2)
[2021-12-29 23:36] LABS: Protein C-Functional 156 % (73-180)
[2021-12-30 00:36] LABS: Dilute Russell Viper Venom 44.7 sec (0.0-47.0); Lupus Reflex Interpretation Comment: (.); PTT-LA 35.6 sec (0.0-51.9)
[2021-12-30 13:36] LABS: Alpha-1-Globulin 0.2 g/dL (0.0-0.4); Alpha-2-Globulin 0.8 g/dL (0.4-1.0); Gamma Globulin 0.6 g/dL (0.4-1.8); Globulin Total 2.5 g/dL (2.2-3.9); Protein, Total 6.5 g/dL (6.0-8.5)
[2021-12-30 22:08] LABS: Cardiolipin Ab IgG <9 GPL U/mL (0-14); Cardiolipin Ab IgM <9 MPL U/mL (0-12)
== END ==
PROVIDERS: PCP Family Medicine; Visit Provider Internal Medicine Medical Oncology
DX: I26.99 Other pulmonary embolism without acute cor pulmonale (principal); I82.409 Acute embolism and thrombosis of unspecified deep veins of unspecified lower extremity
CPT/HCPCS: 80053; 81240; 81241; 84155; 84165; 85025; 85300; 85303; 85379; 85598; 85613

== ENCOUNTER → 2022-04-15 14:21 | Outpatient (CLI) | payer MEDICARE, MEDICAID, SELFPAY ==
[2021-11-12 12:54] VITALS: BMI 26.5
[2022-04-15 19:07] LABS: Add Manual Diff / Slide Review NO; Basophils Absolute Auto 0 /uL (0-100); Basophils Percent Auto 0.5 % (0-2); Eosinophils Absolute Auto 100 /uL (0-450); Eosinophils Percent Auto 1.9 % (2-4); Hematocrit 44.6 % (41-53); Hemoglobin 15.7 g/dL (13.5-17.5); Lymphocytes Absolute Auto 2900 /uL (1100-4500); Lymphocytes Percent Auto 41.2 % (25-40); Mean Corpuscular HGB Conc 35.2 % (30-36); Mean Corpuscular Hemoglobin 34.4 PG (26-34); Mean Corpuscular Volume 97.9 fL (80-100); Monocytes Absolute Auto 600 /uL (0-900); Monocytes Percent Auto 8.4 % (3-14); Neutrophils Absolute Auto 3400 /uL (1500-7000); Platelet Count 196 X10^3/uL (150-400); Red Blood Cell Count 4.55 X10^6/uL (4.5-5.9); Red Cell Distribution Width 13.1 % (11.6-14.8)
[2022-04-15 19:19] LABS: D Dimer < 215 ng/ml (<500)
[2022-04-15 19:28] LABS: Alanine Aminotransferase 26 IU/L (<50); Albumin 4.7 g/dL (3.5-5.0); Albumin Globulin Ratio 1.7 (1.0-2.8); Alkaline Phosphatase 63 U/L (38-126); Aspartate Aminotransferase 27 IU/L (17-59); BUN Creatinine Ratio 23.1 (6-22); Bilirubin Total 1.1 mg/dL (0.2-1.3); Blood Urea Nitrogen 18 mg/dL (9-20); Calcium 9.4 mg/dL (8.4-10.2); Carbon Dioxide 22 mmol/L (22-32); Chloride 101 mmol/L (98-107); Estimated Glomerular Filt Rate > 60 mL/min (>60); Globulin 2.7 g/dL (1.7-4.1); Glucose 105 mg/dL (80-110); HEMOLYSIS < 15 (0-50); Potassium 3.9 mmol/L (3.4-5.1); Sodium 137 mmol/L (137-145); Total Protein 7.4 g/dL (6.3-8.2)
== END ==
PROVIDERS: PCP Family Medicine; Visit Provider Internal Medicine Medical Oncology
DX: I82.409 Acute embolism and thrombosis of unspecified deep veins of unspecified lower extremity (principal)
CPT/HCPCS: 80053; 85025; 85379

== ENCOUNTER → 2022-05-18 09:31 | Outpatient (CLI) | payer MEDICARE, MEDICAID, SELFPAY ==
[2021-11-12 12:54] VITALS: BMI 26.5
[2022-05-18 19:53] LABS: Free T4, Direct Thyroxine 1.15 ng/dL (0.78-2.19)
[2022-05-18 20:02] LABS: Cortisol AM (Before 10AM) 7.42 ug/dL (4.46-22.7)
[2022-05-18 20:06] LABS: TSH w/ Reflex to FT4 1.59 uIU/mL (0.47-4.68)
[2022-05-24 07:31] LABS: Percent Free Testosterone 3.97 % (1.50-4.20)
== END ==
PROVIDERS: PCP Physician Assistant; Visit Provider Physician Assistant
DX: R53.82 Chronic fatigue, unspecified (principal)
CPT/HCPCS: 82533; 84402; 84403; 84439; 84443

== ENCOUNTER → 2022-09-30 09:05 | Outpatient (CLI) | payer MEDICARE, MEDICAID, SELFPAY ==
[2021-11-12 12:54] VITALS: BMI 26.5
[2022-09-30 19:25] LABS: Add Manual Diff / Slide Review NO; Basophils Absolute Auto 0 /uL (0-100); Basophils Percent Auto 0.7 % (0-2); Eosinophils Absolute Auto 100 /uL (0-450); Eosinophils Percent Auto 1.7 % (2-4); Hematocrit 48.1 % (41-53); Lymphocytes Absolute Auto 3000 /uL (1100-4500); Lymphocytes Percent Auto 41.8 % (25-40); Mean Corpuscular HGB Conc 35.3 % (30-36); Mean Corpuscular Hemoglobin 33.9 PG (26-34); Mean Corpuscular Volume 96.1 fL (80-100); Monocytes Absolute Auto 500 /uL (0-900); Neutrophils Absolute Auto 3500 /uL (1500-7000); Neutrophils Percent Auto 48.8 % (50-75); Platelet Count 201 X10^3/uL (150-400); Red Cell Distribution Width 13.7 % (11.6-14.8); White Blood Cell Count 7.2 X10^3/uL (4.5-11.0)
[2022-09-30 19:41] LABS: Alanine Aminotransferase 24 IU/L (<50); Albumin 4.7 g/dL (3.5-5.0); Albumin Globulin Ratio 1.7 (1.0-2.8); Alkaline Phosphatase 89 U/L (38-126); Aspartate Aminotransferase 27 IU/L (17-59); BUN Creatinine Ratio 23.4 (6-22); Blood Urea Nitrogen 22 mg/dL (9-20); Calcium 9.8 mg/dL (8.4-10.2); Carbon Dioxide 24 mmol/L (22-32); Chloride 105 mmol/L (98-107); Estimated Glomerular Filt Rate > 60 mL/min (>60); Globulin 2.8 g/dL (1.7-4.1); Glucose 113 mg/dL (80-110); HEMOLYSIS 16 (0-50); Potassium 4.2 mmol/L (3.4-5.1); Sodium 140 mmol/L (137-145); Total Protein 7.5 g/dL (6.3-8.2)
== END ==
PROVIDERS: PCP Physician Assistant; Visit Provider Internal Medicine Medical Oncology
DX: I82.409 Acute embolism and thrombosis of unspecified deep veins of unspecified lower extremity (principal)
CPT/HCPCS: 80053; 85025

== ENCOUNTER → 2023-04-04 10:04 | Outpatient (CLI) | payer MEDICARE, MEDICAID, SELFPAY ==
[2021-11-12 12:54] VITALS: BMI 26.5
[2023-04-04 20:01] LABS: Cholesterol 226 mg/dL (140-199); Glucose 101 mg/dL (80-110); HDL Cholesterol 44 mg/dL (40-60); LDL Cholesterol Calculated 152 mg/dL (<100); Triglycerides 149 mg/dL (35-150)
[2023-04-04 20:29] LABS: Prostate Specific Antigen Scrn 1.35 ng/mL (0.1-4.0)
[2023-04-07 16:59] LABS: Hep C Virus Ab w/Reflex Quant NEGATIVE s/c (NEGATIVE)
== END ==
PROVIDERS: PCP Family Medicine; Visit Provider Family Medicine
DX: Z12.5 Encounter for screening for malignant neoplasm of prostate (principal); Z12.11 Encounter for screening for malignant neoplasm of colon; Z13.1 Encounter for screening for diabetes mellitus; Z11.59 Encounter for screening for other viral diseases; Z13.220 Encounter for screening for lipoid disorders
CPT/HCPCS: 80061; 82947; 86803; G0103

== ENCOUNTER → 2024-05-03 10:38 | Outpatient (CLI) | payer MEDICARE, SELFPAY ==
[2021-11-12 12:54] VITALS: BMI 26.5
[2024-05-03 20:37] LABS: Add Manual Diff / Slide Review NO; Basophils Absolute Auto 0 /uL (0-100); Basophils Percent Auto 0.7 % (0-2); Eosinophils Absolute Auto 100 /uL (0-450); Eosinophils Percent Auto 1.8 % (2-4); Hematocrit 46.8 % (41-53); Hemoglobin 16.5 g/dL (13.5-17.5); Lymphocytes Absolute Auto 2100 /uL (1100-4500); Lymphocytes Percent Auto 44.2 % (25-40); Mean Corpuscular HGB Conc 35.3 % (30-36); Mean Corpuscular Hemoglobin 34.7 PG (26-34); Mean Corpuscular Volume 98.1 fL (80-100); Monocytes Absolute Auto 300 /uL (0-900); Monocytes Percent Auto 6.8 % (3-14); Neutrophils Absolute Auto 2200 /uL (1500-7000); Neutrophils Percent Auto 46.5 % (50-75); Platelet Count 192 X10^3/uL (150-400); Red Blood Cell Count 4.77 X10^6/uL (4.5-5.9); Red Cell Distribution Width 13.4 % (11.6-14.8); White Blood Cell Count 4.8 X10^3/uL (4.5-11.0)
[2024-05-03 20:42] LABS: BUN Creatinine Ratio 15.4 (6-22); Blood Urea Nitrogen 14 mg/dL (9-20); Calcium 9.9 mg/dL (8.4-10.2); Carbon Dioxide 25 mmol/L (22-32); Chloride 102 mmol/L (98-107); Cholesterol 202 mg/dL (140-199); Estimated Glomerular Filt Rate > 60 mL/min (>60); Glucose 114 mg/dL (80-110); HDL Cholesterol 42 mg/dL (40-60); HEMOLYSIS 16 (0-50); LDL Cholesterol Calculated 134 mg/dL (<100); Potassium 3.9 mmol/L (3.4-5.1); Sodium 138 mmol/L (137-145); Triglycerides 132 mg/dL (35-150)
[2024-05-03 21:13] LABS: Prostate Specific Antigen Scrn 1.29 ng/mL (0.1-4.0); TSH w/ Reflex to FT4 2.32 uIU/mL (0.47-4.68)
[2024-05-03 21:32] LABS: Vitamin B12 > 1000 pg/mL (239-931)
== END ==
PROVIDERS: PCP Family Medicine; Visit Provider Family Medicine
DX: I10 Essential (primary) hypertension (principal); F32.9 Major depressive disorder, single episode, unspecified; Z86.711 Personal history of pulmonary embolism; Z86.718 Personal history of other venous thrombosis and embolism; U09.9 Post COVID-19 condition, unspecified; Z12.5 Encounter for screening for malignant neoplasm of prostate; Z13.220 Encounter for screening for lipoid disorders; Z13.1 Encounter for screening for diabetes mellitus
CPT/HCPCS: 80048; 80061; 82607; 84443; 85025; G0103